=== PATIENT | female | born 1990 | race Caucasian/White ===

== ENCOUNTER 2016-05-15 20:37 | Emergency (ER) | payer OTHER ==
[2016-10-18] MEDS ORDERED: HYDROXYZINE HCL25 MG PO (08:03)
[2016-10-18] MEDS ORDERED: ZYRTEC10 M2 PO (08:03)
[2016-10-18] MEDS ORDERED: NORCO 5-325 TA1 EACH PO (11:49)
== END 2016-05-15 23:44 | disposition left against medical advice (07) ==
LOC: ER1 20:37
DX: Z53.21 Procedure and treatment not carried out due to patient leaving prior to being seen by health care provider (principal)
CPT/HCPCS: 99283

== ENCOUNTER → 2016-05-24 | Outpatient (CLI) | payer OTHER ==
[~2016-05-24] MED LIST: HYDROXYZINE HCL25 MG PO; NORCO 5-325 TA1 EACH PO; ZYRTEC10 M2 PO
== END ==
LOC: EMI 13:38
DX: R51 Headache (principal); E22.1 Hyperprolactinemia; R90.89 Other abnormal findings on diagnostic imaging of central nervous system
CPT/HCPCS: 70553; A9577; J7050

== ENCOUNTER 2020-10-26 21:54 | Emergency (ER) | payer OTHER ==
[~2020-10-26 21:54] MED LIST changes: +MEDROL4 MG PO; +VENTOLIN HFA 66.7 GM INH; +ZITHROMAX250 MG PO
== END 2020-10-27 | disposition left against medical advice (07) ==
LOC: ER1 21:54
DX: Z53.21 Procedure and treatment not carried out due to patient leaving prior to being seen by health care provider (principal)